=== PATIENT | female | born 1930 | race Caucasian/White ===

== ENCOUNTER 2017-04-08 11:50 | Day surgery (SDC) | payer MEDICARE, BC ==
[2017-04-08 12:16] LABS: HEMATOCRIT 38.4 % (36.0-47.0); HEMOGLOBIN 13.1 g/dL (12.0-15.5); HGB HCT DIFFERENCE 0.9; MEAN CORPUSCULAR HEMOGLOBIN 33.7 pg (27.0-33.4); MEAN CORPUSCULAR VOLUME 99 fl (80-97); RED BLOOD COUNT 3.88 10^6/uL (3.72-5.28); RED CELL DISTRIBUTION WIDTH 13.3 % (11.5-14.0)
--- NOTE | 2017-04-08 12:19 | EKG REPORT ---
SEVERITY:- NORMAL ECG - SINUS RHYTHM : Confirmed by: Kait Stewart MD 08-Apr-2017 12:18:54
[2017-04-08] MEDS ORDERED: CEFAZOLIN 1 GM/D5W RTU 1 GM/50 ML RTUPB IV PRN (12:28)
[2017-04-08] MEDS ORDERED: LIDOCAINE 2% INJ (20 MG/ML) 20 ML MDV ONE (12:39)
[2017-04-08] MEDS ORDERED: BUPIVACAINE HCL 0.5 % INJ/PF 30 ML SDV ONE (12:39)
[2017-04-08] MEDS ORDERED: FENTANYL CITRATE INJ/PF 100 MCG/2 ML AMPUL ONE (12:46)
[2017-04-08] MEDS ORDERED: MIDAZOLAM 2 MG/2 ML INJ ONE (12:46)
[2017-04-08] MEDS ORDERED: PROPOFOL INJ 200 MG/20 ML VIAL IV ONE (12:46)
--- NOTE | 2017-04-29 16:02 | SURGICARE OPERATIVE REPORT E ---
[facility] Operative Report NAME: PREM QURESHI AGE: 87Y DATE OF SURGERY: 04/08/2017 ROOM: PREOPERATIVE DIAGNOSES: 1. Hallux interphalangeus, right foot. 2. Exostosis head proximal phalanx, right hallux. POSTOPERATIVE DIAGNOSES: 1. Hallux interphalangeus, right foot. 2. Exostosis head proximal phalanx, right hallux. INTRAOPERATIVE FINDINGS: Indicated a well defined exostosis at medial aspect of the head of the proximal phalanx of the right hallux which has created tremendous pressure and pain, especially when the patient is in closed shoes. Intraoperative findings are confirmed radiographically. SURGEON: TERESITA TOWNSEND D.P.M. PROCEDURE: With the patient laying in a dorsal recumbent position, the right foot and leg were prepped and draped in the usual standard sterile orthopedic manner after the local anesthesia was administered, which was a digital block utilizing a 50/50 mixture of 2% Xylocaine and 0.5% Marcaine. After the anesthetic effect was accomplished, a midfoot tourniquet was applied to control hemostasis after the blood was exsanguinated from the forefoot. Attention was directed right over the medial aspect of the right hallux. A curvilinear incision as placed right over the area. The initial incision was deepened. The superficial and deep subcutaneous tissues were dissected with blunt and sharp dissection. This dissection was carried until the capsular structures of the interphalangeal joint were brought into the surgical field. At this point a capsular incision was made. Capsular and periosteal structures were dissected off bone and the head of the proximal phalanx was brought into the surgical field. At this point, the irregularity was visualized and resected and the head of the proximal phalanx was remodeled to a more normal anatomical configuration. At this point, the surgical area was irrigated. The right tourniquet at the midfoot was removed and circulation to the right foot returned to normal immediately as the normal digital color and temperature became apparent. Next, the capsular structures around the interphalangeal joint of the right hallux were closed with 3-0 Vicryl. The subcutaneous tissues were closed with 3-0 Vicryl. The skin edges were repositioned and closed with 4-0 nylon using continuous interlocked stitch. A Betadine compression dressing was applied around the right hallux. The patient tolerated the procedures well and left the operating room with stable vital signs and in good condition. The patient was taken to the recovery room alert, conscious and oriented. There are no permanent disabilities anticipated at this time. This patient was discharged home with instructions for postoperative care at home. Pain medicine and antibiotics were prescribed for this patient and the family is instructed how to handle the postoperative management with antibiotics and pain medication. The patient was instructed to ambulate to minimum and to elevate her right foot as much as possible for the following 48 hours. Patient to resume normal diet at the end of the day. Followup appointment was set in my office in 72 hours. DICTATING PHYSICIAN: TERESITA TOWNSEND D.P.M. [id number] PHY#: [id number] ID: [id number] JOB#: [id number] ACCT: [id number] cc:TERESITA TOWNSEND D.P.M. >
== END 2017-04-08 14:48 | disposition home or self-care (01) ==
LOC: SC 11:50
PROVIDERS: ATTEND Podiatrist Foot & Ankle Surgery
PROC: 0QBQ0ZZ Excision of Right Toe Phalanx, Open Approach (ICD-10-PCS; principal; 2017-04-08 13:00)
DX: M25.871 Other specified joint disorders, right ankle and foot (principal); M06.9 Rheumatoid arthritis, unspecified; D64.9 Anemia, unspecified; E07.9 Disorder of thyroid, unspecified; K21.9 Gastro-esophageal reflux disease without esophagitis; Z79.899 Other long term (current) drug therapy; Z85.3 Personal history of malignant neoplasm of breast
CPT/HCPCS: 93005; 36415; 85027; 93010; 28124; J2250; J3490; J0690; J3010; J2704; 1480

== ENCOUNTER → 2017-05-30 | Outpatient (CLI) | payer MEDICARE, BC ==
--- NOTE | 2017-05-30 18:05 | RADIOLOGY REPORT (SQ) ---
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 NUMBER OF VIEWS: Three views. TECHNIQUE: AP, lateral and oblique radiographic images acquired of the right foot without and with weight-bearing. LIMITATIONS: None. FINDINGS: MINERALIZATION: Normal. BONES: There appears to be chronic subluxation of interphalangeal joint of the great toe with deformi ty of the head of the proximal phalanx. There may be bone destruction in the head of 1st proximal ph alanx. Hammertoe deformity is suggested in the remaining digits. JOINTS: No effusions. SOFT TISSUES: No soft tissue swelling. No foreign body. OTHER: No other significant finding. IMPRESSION: 1. Possible bone destruction involving the head of the 1st proximal phalanx. 2. 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 3. Hammertoes. TECHNICAL DOCUMENTATION: JOB ID: [id number] [employer]- All Rights Reserved
== END ==
LOC: OD 17:03
PROVIDERS: ATTEND Podiatrist Foot & Ankle Surgery
DX: Q66.9 Congenital deformity of feet, unspecified (principal)

== ENCOUNTER 2017-11-04 07:55 | Day surgery (SDC) | payer MEDICARE, BC ==
[~2017-11-04 07:55] MED LIST: CEFAZOLIN 1 GM/D5W RTU 1 GM/50 ML RTUPB IV PRN; RINGERS SOLUTION,LACTATED 1,000 ML IV PRN
[2017-11-04] MEDS ORDERED: FENTANYL CITRATE INJ/PF 100 MCG/2 ML AMPUL ONE (09:06)
[2017-11-04] MEDS ORDERED: MIDAZOLAM 2 MG/2 ML INJ ONE (09:06)
[2017-11-04] MEDS ORDERED: ONDANSETRON HCL INJ/PF 4 MG/2 ML SDV ONE (09:06)
[2017-11-04] MEDS ORDERED: PROPOFOL INJ 200 MG/20 ML VIAL IV ONE (09:07)
[2017-11-04] MEDS ORDERED: BUPIVACAINE HCL 0.5 % INJ/PF 30 ML SDV ONE (09:08)
[2017-11-04] MEDS ORDERED: LIDOCAINE 2% INJ (20 MG/ML) 20 ML MDV ONE (09:08)
[2017-11-04] MEDS ORDERED: FAMOTIDINE INJ/PF 20 MG/2 ML SDV IV ONE (09:20)
--- NOTE | 2017-11-04 12:18 | SURGICARE OPERATIVE REPORT E ---
[facility] NAME: PREM QURESHI AGE: 87Y DATE OF SURGERY: 11/04/2017 ROOM: PREOPERATIVE DIAGNOSIS: DIGITAL DEFORMITY OF THE RIGHT HALLUX. POSTOPERATIVE DIAGNOSIS: DIGITAL DEFORMITY OF THE RIGHT HALLUX. OPERATION: Partial phalangectomy head proximal phalanx, right hallux. SURGEON: TERESITA TOWNSEND D.P.M. ANESTHESIA: Local. INTRAOPERATIVE FINDINGS: Dislocation of the distal phalanx in a varus direction creating a tremendous pressure point on the lateral aspect of the base of the proximal phalanx and causing extreme difficulties with wearing closed shoes. The right hallux was also extensively longer than the rest of the digits. PROCEDURE: With the patient lying in a dorsum recumbent position, the right foot and leg were prepped and draped in the usual standard sterile orthopedic manner, after the local anesthesia was administered, which was an original infiltration with a 50/50 mixture of 2% Xylocaine and 0.5% Marcaine. After the anesthetic effect was accomplished, the right leg was elevated for approximately 4 minutes of time and the right ankle pneumatic tourniquet was inflated up to 250 mmHg after the blood was exsanguinated from the right foot. At this point, the right leg was brought to the level of the table and attention was directed right over the right hallux. A curvilinear incision was traced over the dorsal lateral aspect of the hallux. The initial incision was deepened. The superficial and deep subcutaneous tissues via blunt and sharp dissection. All bleeders were irrigated. All vital structures were identified and protected from surgical trauma. At this point, the extensor hallucis longus tendon was visualized and it was traced to its insertion which was over the base of the distal phalanx. Due to the arthritic changes and the dislocation of the joint, decision was made to perform a Z-plasty tenotomy of the extensor hallucis longus tendon in order to be able to get into the phalangeal joint of the right hallux. After performing the Z-plasty, the proximal and distal ends of the tendon were reflected and at this point, the joint was identified and a capsulotomy was performed at this time. The level of resection of the distal phalanx was established from the x-ray which was taken before the case began. The bone was reflected and a proficient amount was removed, the distal phalanx was realigned and positioned in anatomical alignment with the proximal phalanx. At this point, decision was made not to carry excision of the joint due to the severe osteoporosis of the bone and a K-wire was used to keep the right hallux in alignment and 0.62 mm of K-wire was introduced through the distal phalanx into the proximal phalanx and that aligned the proximal and distal phalanx of the right hallux. Intraoperative x-rays were obtained at this point to document anatomical alignment of proximal and distal phalanges. At this point, the area was irrigated. The capsule structure were closed with 2-0 Vicryl. The *------* of the extensor hallucis longus tendon were repositioned and anchored with 3-0 Vicryl. After that, the subcutaneous tissues from deep to superficial were closed with 3-0 Vicryl. The skin edges were repositioned and closed with 4-0 nylon using a continuous Interlock stitch. After the postoperative x-rays were obtained, the right ankle pneumatic tourniquet was deflated and circulation to the right foot returned to normal immediately as the normal digital color, became apparent that *------* of the surgery was carried without the control of hemostasis. At this point, a Betadine compression dressing was applied around the right hallux, followed with Matthew bandage and a surgical shoe. The patient tolerated the procedures well and left the operating room with stable vital signs and in good condition. The patient was taken to the recovery room alert, conscious and oriented. There are no permanent disabilities anticipated at this time. The immediate postoperative recovery was also very uneventful. The patient was sent home with instructions for postoperative care at home. The patient was given pain medicine and antibiotics for postoperative management of pain and infection. The patient was instructed how to take the medications. The patient was instructed also to ambulate to minimum with assistance of the walker and to bear very little weight on the right heel. The patient was allowed to resume a normal diet and a followup appointment was set up in office in 72 hours. DICTATING PHYSICIAN: TERESITA TOWNSEND D.P.M. [id number] PHY#: [id number] ID: [id number] JOB#: [id number] ACCT: [id number] cc:TERESITA TOWNSEND D.P.M. >
--- NOTE | 2017-11-04 12:47 | RADIOLOGY REPORT (SQ) ---
EXAM DESCRIPTION: FOOT RIGHT 2 VIEWS; NO CHG FLUORO COMPLETED DATE/TIME: 11/04/2017 11:32 am REASON FOR STUDY: BONE EXCISION/PINNING RT HALLUX ASST WITH FLUORO IN OR M20.5X1 OTHER DEFORMITIES OF TOE(S) (ACQUIRED), RIGHT FOOT COMPARISON: Right foot films 05/30/2017 FLUOROSCOPY TIME: 3 seconds 2 digital radiographic images images saved to PACS. TECHNIQUE: Intra-operative images acquired during surgical procedure to evaluate progress. NUMBER OF IMAGES: 2 digital radiographic images LIMITATIONS: None. FINDINGS: 2 C-arm images are submitted during surgery on the right great toe interphalangeal joint w ith placement of a K-wire. Small amount of air in the joint space. Please see the operative report for further details IMPRESSION: Intra procedural imaging and fluoro COMMENT: Quality ID [id number]: Final reports for procedures using fluoroscopy that document radiation exp osure indices, or exposure time and number of fluorographic images (if radiation exposure indices are not available) Please consult full operative report of the attending physician for description of the procedure. TECHNICAL DOCUMENTATION: JOB ID: [id number] [employer]- All Rights Reserved Reading location - IP/workstation name: [facility]
--- NOTE | 2017-11-04 12:47 | RADIOLOGY REPORT (SQ) ---
EXAM DESCRIPTION: FOOT RIGHT 2 VIEWS; NO CHG FLUORO COMPLETED DATE/TIME: 11/04/2017 11:32 am REASON FOR STUDY: BONE EXCISION/PINNING RT HALLUX ASST WITH FLUORO IN OR M20.5X1 OTHER DEFORMITIES OF TOE(S) (ACQUIRED), RIGHT FOOT COMPARISON: Right foot films 05/30/2017 FLUOROSCOPY TIME: 3 seconds 2 digital radiographic images images saved to PACS. TECHNIQUE: Intra-operative images acquired during surgical procedure to evaluate progress. NUMBER OF IMAGES: 2 digital radiographic images LIMITATIONS: None. FINDINGS: 2 C-arm images are submitted during surgery on the right great toe interphalangeal joint w ith placement of a K-wire. Small amount of air in the joint space. Please see the operative report for further details IMPRESSION: Intra procedural imaging and fluoro COMMENT: Quality ID [id number]: Final reports for procedures using fluoroscopy that document radiation exp osure indices, or exposure time and number of fluorographic images (if radiation exposure indices are not available) Please consult full operative report of the attending physician for description of the procedure. TECHNICAL DOCUMENTATION: JOB ID: [id number] [employer]- All Rights Reserved Reading location - IP/workstation name: [facility]
== END 2017-11-04 11:47 | disposition home or self-care (01) ==
LOC: SC 07:55
PROVIDERS: ATTEND Podiatrist Foot & Ankle Surgery
PROC: 0QBQ0ZZ Excision of Right Toe Phalanx, Open Approach (ICD-10-PCS; principal; 2017-11-04 09:00)
DX: M20.5X1 Other deformities of toe(s) (acquired), right foot (principal); M06.9 Rheumatoid arthritis, unspecified; K44.9 Diaphragmatic hernia without obstruction or gangrene; E07.9 Disorder of thyroid, unspecified; K21.9 Gastro-esophageal reflux disease without esophagitis; Z79.899 Other long term (current) drug therapy
CPT/HCPCS: 73620; 28124; C1713; J2250; J3490 ×2; J0690; J3010; J2405; J2704; S0028; 01480